=== PATIENT | male | born 1965 | race Caucasian/White ===

== ENCOUNTER 2017-03-24 16:52 | Emergency (ER) | payer BC ==
[~2017-03-24] VITALS: Wt 100.5 kg
[~2017-03-24 16:52] MED LIST: ASPI-664 PO; ATOR40TA68 PO; BENA10TA48 PO; DOCU100C26 PO; HYDR25TA6 PO; LANT3I SC; NATE60TA PO; SITA1TAB7 PO
--- NOTE | 2017-03-24 22:26 | ERA ---
ER Documentation Chief Complaint Date/Time DATE: 03/24/17 TIME: 22:26 Chief Complaint ELEVATED K+SENT FOR REPEAT BLOOD HPI The patient is a 52-year-old male, presenting to the ER because of abnormal lab , high potassium. He had the blood test a week ago in preparation for back surgery. His doctor called him today and asked him to go to the ER because of abnormal potassium. He denies headache, neck pain, chest pain, abdominal pain, vomiting, dysuria, diarrhea. He complains of dyspnea on exertion for the last 2 weeks with bilateral leg edema for more than 4 weeks, denies orthopnea, denies paroxysmal nocturnal dyspnea. He does not smoke nor drink. He complained of right plantar wounds for the last 4 days Past medical history: Hypertension, diabetes mellitus, dyslipidemia, CAD, right Charcot foot, Chronic kidney disease Past surgical history: He had cardiac angiogram on February 20, 2016 which was unremarkable ROS All systems reviewed and are negative except as per history of present illness. Medications Home Meds Active Scripts Insulin Glargine* (Lantus*) 100 Unit/Ml Soln, 28 UNIT SC DAILY for 30 Days, #1 VIAL Prov:JESSE CALVIN MD 03/11/16 Nateglinide* (Nateglinide*) 60 Mg Tablet, 60 MG PO AC MEALS for 30 Days, #180 TAB with carbohydrate meals Prov:JESSE CALVIN MD 03/11/16 Reported Medications Insulin Glargine* (Lantus*) 100 Unit/Ml Soln, 36 UNIT SC QHS, #1 VIAL 03/24/17 Docusate Sodium* (Doc-Q-Lace*) 100 Mg Capsule, 100 MG PO DAILY, CAP 03/24/17 Ciprofloxacin Opht* (Ciloxan*) 0.3%-3.5 Opht Oint, 1 APPLIC LEFT EYE TID, EA 03/24/17 Prednisolone Acetate* (Pred Forte*) 5 Ml Susp, 1 DROP LEFT EYE QID, EA 03/24/17 Repaglinide* (Repaglinide*) 2 Mg Tablet, 2 MG PO AC MEALS, TAB 03/24/17 Carvedilol* (Carvedilol*) 25 Mg Tablet, 25 MG PO BID, #60 TAB 03/24/17 Furosemide* (Furosemide*) 20 Mg Tablet, 20 MG PO DAILY, #60 TAB 03/24/17 Labetalol Hcl* (Labetalol Hcl*) 100 Mg Tablet, 100 MG PO BID, TAB 03/24/17 Sitagliptin Phos/Metformin HCl (Janumet 50-1,000 mg Tablet) 1 Each Tablet, 1 EACH PO BID WITH MEALS, TAB 03/24/17 Docusate Sodium* (Doc-Q-Lace*) 100 Mg Capsule, 100 MG PO DAILY, CAP 02/10/16 Atorvastatin* (Atorvastatin*) 40 Mg Tablet, 40 MG PO QHS, #30 TAB 07/21/15 Aspirin (Low Dose Aspirin) 81 Mg Tablet.dr, 81 MG PO DAILY 07/21/15 Benazepril Hcl* (Benazepril Hcl*) 10 Mg Tablet, 20 MG PO DAILY, #30 TAB 07/21/15 Hydrochlorothiazide* (Hydrochlorothiazide*) 25 Mg Tab, 25 MG PO DAILY, #30 TAB 07/21/15 Discontinued Reported Medications Repaglinide* (Prandin*) 2 Mg Tablet, 2 MG PO AC MEALS, TAB 03/24/17 Sitagliptin Phos-Metformin Hcl (Janumet) 50-1,000 Mg Tablet, 1 TAB PO WITH BREAKFAST DINNE, #60 TAB 02/10/16 Allergies Allergies: Coded Allergies: No Known Allergy (Unverified , 03/24/17) PMhx/Soc History of Surgery: Yes (RT LEG SX,MOUTH SX, ) Anesthesia Reaction: No Hx Neurological Disorder: No Hx Respiratory Disorders: No Hx Cardiac Disorders: No Hx Psychiatric Problems: No Hx Miscellaneous Medical Probl: No Hx Alcohol Use: No Hx Substance Use: No Hx Tobacco Use: Yes (QUIT 3 YRS AGO) Physical Exam Vitals Vital Signs Date Time Temp Pulse Resp B/P Pulse Ox O2 Delivery O2 Flow Rate FiO2 03/24/17 23:47 61 18 170/69 99 Room Air 03/24/17 16:58 98.0 98 18 168/74 99 Physical Exam Const: No acute distress. Head: Atraumatic. Eyes: Normal Conjunctiva. ENT: Normal External Ears, Nose and Mouth. Neck: Full range of motion. No meningismus. Resp: Clear to auscultation bilaterally. Cardio: Regular rate and rhythm. Abd: Soft, non distended, normal bowel sounds, non tender. Skin: No petechiae or rashes. Back: No midline or flank tenderness. Ext: No cyanosis, or edema. Neur: Awake and alert. No focal deficit Psych: Normal Mood and Affect. Result Diagram: 03/24/17229903/24/172299 Results 24 hrs Laboratory Tests Test 03/24/17 23:00 White Blood Count 5.310^3/ul Red Blood Count 3.3010^6/ul Hemoglobin 9.5g/dl Hematocrit 28.1% Mean Corpuscular Volume 85.2fl Mean Corpuscular Hemoglobin 28.8pg Mean Corpuscular Hemoglobin Concent 33.8g/dl Red Cell Distribution Width 13.3% Platelet Count 38171^3/UL Mean Platelet Volume 10.0fl Neutrophils % 56.7% Lymphocytes % 33.9% Monocytes % 6.3% Eosinophils % 2.1% Basophils % 0.8% Nucleated Red Blood Cells % 0.0/100WBC Neutrophils # 3.010^3/ul Lymphocytes # 1.810^3/ul Monocytes # 0.310^3/ul Eosinophils # 0.110^3/ul Basophils # 0.010^3/ul Nucleated Red Blood Cells # 0.010^3/ul Prothrombin Time 13.0Sec Prothrombin Time Ratio 1.0 INR International Normalized Ratio 0.98 Activated Partial Thromboplast Time 28.0Sec Sodium Level 137mmol/L Potassium Level 4.7mmol/L Chloride Level 110mmol/L Carbon Dioxide Level 21mmol/L Anion Gap 11 Blood Urea Nitrogen 37mg/dl Creatinine 1.90mg/dl Glucose Level 137mg/dl Calcium Level 8.8mg/dl Total Bilirubin 0.0mg/dl Direct Bilirubin 0.00mg/dl Indirect Bilirubin 0.0mg/dl Aspartate Amino Transf (AST/SGOT) 21IU/L Alanine Aminotransferase (ALT/SGPT) 33IU/L Alkaline Phosphatase 69IU/L Troponin I < 0.012ng/ml B-Type Natriuretic Peptide 334PG/ML Total Protein 6.1g/dl Albumin 3.3g/dl Globulin 2.80g/dl Albumin/Globulin Ratio 1.17 Current Medications Medications (Trade) Dose Ordered Sig/Carisa Route PRN Reason Start Time Stop Time Status Last Admin Dose Admin Sodium Chloride (NS) 500 ml @ 500 mls/hr Q1H ONCE IV 03/25/17 01:30 03/25/17 02:29 UNV Procedures/MDM [address] [address] Radiology Main Line: [phone] DIAGNOSTIC IMAGING REPORT Patient: KAMRON HENRIQUEZ : 1965 Age: 52 Sex: M MR #: [id number] DOS: 03/24/17 2250 Ordering MD: MALA CHACON MD Location: E/R Room/Bed: AMENDMENT: 03/25/2017 12:41:46 AM Roberto Carlos Santiago Please refer to the corrected report below: PROCEDURE: US bilateral lower extremity venous Doppler CLINICAL INDICATION: SOB TECHNIQUE: Multiple sonographic images of the bilateral lower extremity deep venous system was obtained utilizing grayscale, color-flow, compressive sonography and Doppler imaging with augmentation. COMPARISON: No pertinent prior examinations were submitted for comparison. FINDINGS: There is normal compressibility and flow within the right common femoral, superficial femoral, and popliteal veins. The peroneal vein is not visualized. There is normal compressibility and flow within the left common femoral, superficial femoral, and popliteal veins. The peroneal vein is not visualized. IMPRESSION: No sonographic evidence for deep venous thrombosis. RPTAT: HIKT PROCEDURE: US right lower extremity venous Doppler CLINICAL INDICATION: Right leg swelling TECHNIQUE: Multiple sonographic images of the right lower extremity deep venous system was obtained utilizing grayscale, color-flow, compressive sonography and Doppler imaging with augmentation. COMPARISON: No pertinent prior examinations were submitted for comparison. FINDINGS: There is normal compressibility and flow within the right common femoral, superficial femoral, and popliteal veins. The peroneal vein is not visualized. IMPRESSION: No sonographic evidence for deep venous thrombosis. RPTAT: HIKT .Roberto Carlos Santiago MD, MD Date Time Electronically viewed and signed by .Roberto Carlos Santiago MD, MD on 03/25/2017 00:43 .T/ CC: MALA CHACON MD [address] [address] Radiology Main Line: [phone] DIAGNOSTIC IMAGING REPORT Patient: KAMRON HENRIQUEZ : 1965 Age: 52 Sex: M MR #: [id number] DOS: 03/24/17 2250 Ordering MD: MALA CHACON MD Location: E/R Room/Bed: PROCEDURE: Chest. CLINICAL INDICATION: Shortness of breath. TECHNIQUE: Single frontal view of the chest was obtained. COMPARISON: 02/11/2016. FINDINGS: The cardiac silhouette is within normal limits. The aortic arch is unremarkable. There is no focal consolidation, vascular congestion or pleural effusion. There is no pneumothorax. IMPRESSION: No evidence for active cardiopulmonary disease. .Richie Poole MD, Date Time Electronically viewed and signed by .Richie Poole MD, MD on 03/25/2017 00:17 .T/ CC: MALA CHACON MD EKG: Read by emergency physician Rate/Rhythm: Normal Sinus Rhythm 68 beats/min QRS, ST, T-waves: No ST elevation, no T inversion, Nonspecific T abnormality Impression: Abnormal EKG MEDICAL MAKING DECISION: The patient is a 52-year-old male, presenting because of possible hyperkalemia, however her potassium level is normal. He does not have any evidence of CHF or DVT. Peripheral edema is most likely due to chronic kidney disease. The differential diagnoses considered include but are not limited to DVT, lymphedema, cellulitis, hepatic insufficiency Departure Diagnosis: Primary Impression: Chronic kidney disease Additional Impressions: Peripheral edema Anemia Condition: Good Comments I discussed the findings with the patient. I advised the patient to follow-up with the primary physician in about 1-2 days, sooner if needed and return if any concern. MALA CHACON MD Mar 24, 2017 22:26
[2017-03-24] MEDS ORDERED: SITA1TAB5 PO (23:30)
[2017-03-24] MEDS ORDERED: FURO20TA3 PO (23:30)
[2017-03-24] MEDS ORDERED: CARV25TA79 PO (23:30)
[2017-03-24] MEDS ORDERED: LABE100T3 PO (23:30)
[2017-03-24] MEDS ORDERED: CPR3OO3.5 LEFT EYE (23:30)
[2017-03-24] MEDS ORDERED: PRD1OP5 LEFT EYE (23:30)
[2017-03-24] MEDS ORDERED: REPA2TAB6 PO (23:30)
[2017-03-24] MEDS ORDERED: REPA2TAB8 PO (23:30)
[2017-03-24] MEDS ORDERED: DOCU100C26 PO (23:46)
[2017-03-24] MEDS ORDERED: LANT3I SC (23:49)
--- NOTE | 2017-03-24 23:58 | RADRPT ---
AMENDMENT: 03/25/2017 12:41:46 AM Roberto Carlos Santiago Please refer to the corrected report below: PROCEDURE: US bilateral lower extremity venous Doppler CLINICAL INDICATION: SOB TECHNIQUE: Multiple sonographic images of the bilateral lower extremity deep venous system was obt ained utilizing grayscale, color-flow, compressive sonography and Doppler imaging with augmentation. COMPARISON: No pertinent prior examinations were submitted for comparison. FINDINGS: There is normal compressibility and flow within the right common femoral, superficial femoral, and p opliteal veins. The peroneal vein is not visualized. There is normal compressibility and flow within the left common femoral, superficial femoral, and po pliteal veins. The peroneal vein is not visualized. IMPRESSION: No sonographic evidence for deep venous thrombosis. RPTAT: HIKT PROCEDURE: US right lower extremity venous Doppler CLINICAL INDICATION: Right leg swelling TECHNIQUE: Multiple sonographic images of the right lower extremity deep venous system was obtaine d utilizing grayscale, color-flow, compressive sonography and Doppler imaging with augmentation. COMPARISON: No pertinent prior examinations were submitted for comparison. FINDINGS: There is normal compressibility and flow within the right common femoral, superficial femoral, and p opliteal veins. The peroneal vein is not visualized. IMPRESSION: No sonographic evidence for deep venous thrombosis. RPTAT: HIKT .Roberto Carols Santiago MD, Date Time Electronically viewed and signed by .Roberto Carlos Santiago MD, on 03/25/2017 00:43 .T/
[2017-03-25 00:01] LABS: BASOPHILS % 0.8 % (0.0-2.0); EOSINOPHILS # 0.1 10^3/ul (0.0-0.5); EOSINOPHILS % 2.1 % (0.0-7.0); HEMATOCRIT 28.1 % (42.0-52.0); HEMOGLOBIN 9.5 g/dl (14.0-18.0); LYMPHOCYTES # 1.8 10^3/ul (0.8-2.9); LYMPHOCYTES % 33.9 % (15.0-51.0); MEAN CORPUSCULAR HEMOGLOBIN 28.8 pg (29.0-33.0); MEAN CORPUSCULAR HGB CONC 33.8 g/dl (32.0-37.0); MEAN CORPUSCULAR VOLUME 85.2 fl (82.0-101.0); MONOCYTE # 0.3 10^3/ul (0.3-0.9); MONOCYTES % 6.3 % (0.0-11.0); NEUTROPHILS % 56.7 % (39.0-77.0); PLATELET COUNT 231 10^3/UL (140-415); RED CELL DISTRIBUTION WIDTH 13.3 % (11.5-14.5); WHITE BLOOD COUNT 5.3 10^3/ul (4.8-10.8)
[2017-03-25 00:16] LABS: INR 0.98
--- NOTE | 2017-03-25 00:17 | RADRPT ---
PROCEDURE: Chest. CLINICAL INDICATION: Shortness of breath. TECHNIQUE: Single frontal view of the chest was obtained. COMPARISON: 02/11/2016. FINDINGS: The cardiac silhouette is within normal limits. The aortic arch is unremarkable. There is no focal consolidation, vascular congestion or pleural effusion. There is no pneumothorax. IMPRESSION: No evidence for active cardiopulmonary disease. .Richie Poole MD, Date Time Electronically viewed and signed by .Richie Poole MD, on 03/25/2017 00:17 .T/
[2017-03-25 00:29] LABS: ALANINE AMINOTRANSFERASE 33 IU/L (13-69); ALBUMIN 3.3 g/dl (3.3-4.9); ALBUMIN/GLOBULIN RATIO 1.17; ALKALINE PHOSPHATASE 69 IU/L (42-121); ANION GAP 11 (8-16); ASPARTATE AMINO TRANSFERASE 21 IU/L (15-46); BLOOD UREA NITROGEN 37 mg/dl (7-20); CALCIUM 8.8 mg/dl (8.4-10.2); CARBON DIOXIDE 21 mmol/L (21-31); CHLORIDE 110 mmol/L (97-110); GLUCOSE 137 mg/dl (70-220); POTASSIUM 4.7 mmol/L (3.5-5.1); SODIUM 137 mmol/L (135-144); TOTAL PROTEIN 6.1 g/dl (6.1-8.1)
[2017-03-25 00:37] LABS: B-TYPE NATRIURETIC PEPTIDE 334 PG/ML (0-125)
[2017-03-25 01:02] LABS: TROPONIN-I < 0.012 ng/ml (0.00-0.12)
[2017-03-25] MEDS ORDERED: SOD CHLORIDE 0.9% 500 ML IV ONE (01:30)
[2017-03-25 02:00] VITALS: BP 160/77; PULSE 64; RESP 17
== END 2017-03-25 02:31 | disposition home or self-care (01) ==
LOC: E/R 16:52
DX: N18.9 Chronic kidney disease, unspecified (principal); R60.0 Localized edema; D64.9 Anemia, unspecified; E11.9 Type 2 diabetes mellitus without complications; I25.10 Atherosclerotic heart disease of native coronary artery without angina pectoris; I12.9 Hypertensive chronic kidney disease with stage 1 through stage 4 chronic kidney disease, or unspecified chronic kidney disease; Z79.4 Long term (current) use of insulin; Z79.84 Long term (current) use of oral hypoglycemic drugs; Z79.82 Long term (current) use of aspirin; Z87.891 Personal history of nicotine dependence
CPT/HCPCS: 36415; 71010; 80053; 83880; 84484; 85025; 85610; 85730; 93970; J7040

== ENCOUNTER 2017-04-26 12:43 | Day surgery (SDC) | payer BC ==
[~2017-04-26] VITALS: Ht 170.2 cm; Wt 97.4 kg
[~2017-04-26 12:43] MED LIST changes: +CARV25TA79 PO; +CPR3OO3.5 LEFT EYE; +FURO20TA3 PO; +LABE100T3 PO; +PRD1OP5 LEFT EYE; +REPA2TAB8 PO; +SITA1TAB5 PO; -SITA1TAB7 PO
[2017-04-26 13:42] VITALS: Ht 170.2 cm; Wt 97.4 kg
[2017-04-26 14:06] VITALS: BP 197/96; PULSE 65
--- NOTE | 2017-04-26 14:47 | OPPN ---
Date/Time of Note Date/Time of Note DATE: 04/26/17 TIME: 14:46 Operative Report Preoperative Diagnosis Positive occult blood in stool Postoperative Diagnosis 3 colon polyps removed using biopsy forceps as well as snare and electrocautery Poor prep making the exam suboptimal Internal hemorrhoids Operation/Procedure Performed Colonoscopy biopsy and polypectomy Surgeon see signature line magistrate assistant None Anesthesia: moderate sedation Estimated blood loss: none Transfusion Required none Specimen Colon polyps Grafts/Implants none Complications none RADHA BOTELLO MD Apr 26, 2017 14:47
--- NOTE | 2017-04-26 14:47 | OPPN ---
Date/Time of Note Date/Time of Note DATE: 04/26/17 TIME: 14:46 Operative Report Preoperative Diagnosis Positive occult blood in stool Postoperative Diagnosis 3 colon polyps removed using biopsy forceps as well as snare and electrocautery Poor prep making the exam suboptimal Internal hemorrhoids Operation/Procedure Performed Colonoscopy biopsy and polypectomy Surgeon see signature line cafeteria assistant None Anesthesia: moderate sedation Estimated blood loss: none Transfusion Required none Specimen Colon polyps Grafts/Implants none Complications none RADHA BOTELLO MD Apr 26, 2017 14:47
--- NOTE | 2017-04-26 14:47 | OPPN ---
Date/Time of Note Date/Time of Note DATE: 04/26/17 TIME: 14:46 Operative Report Preoperative Diagnosis Positive occult blood in stool Postoperative Diagnosis 3 colon polyps removed using biopsy forceps as well as snare and electrocautery Poor prep making the exam suboptimal Internal hemorrhoids Operation/Procedure Performed Colonoscopy biopsy and polypectomy Surgeon see signature line assistant project manager None Anesthesia: moderate sedation Estimated blood loss: none Transfusion Required none Specimen Colon polyps Grafts/Implants none Complications none RADHA BOTELLO MD Apr 26, 2017 14:47
[2017-04-26] MEDS ORDERED: MIDAZOLAM 1 MG/ML 2 ML INJ ONE (14:58)
[2017-04-26] MEDS ORDERED: FENTAnyl 50 MCG/ML VIAL ONE (14:58)
[2017-04-26 15:10] VITALS: BP 163/84; RESP 14
--- NOTE | 2017-04-27 08:40 | GILP ---
DATE OF PROCEDURE: NAME OF PROCEDURES: Colonoscopy, biopsy and polypectomy. SURGEON: Radha Deleon MD PREOPERATIVE DIAGNOSIS: Positive occult blood in stool. POSTOPERATIVE DIAGNOSES 1. Colonoscopy all the way to the cecum. 2. Poor prep making the exam very suboptimal. 3. Three colon polyps were removed using the biopsy forceps as well as snare and electrocautery. 4. Internal hemorrhoids. INDICATION FOR THE PROCEDURE: Mr. Elmer Wall is a 52-year-old male patient who was noted to h ave positive occult blood in stool. The patient was scheduled for colonoscopic examination. The pr ocedure and possible complications were well explained to the patient, he understood and consented t o the procedure. DESCRIPTION OF PROCEDURE: Under the influence of fentanyl and Versed, the colonoscope was carefully introduced in the rectum and under direct vision, it was advanced all the way to the cecum. FINDINGS: The patient had poor prep making the exam very suboptimal. The patient was noted to have 3 polyps and 2 of them were removed using biopsy forceps and one with the snare and electrocautery. The patient was noted to have internal hemorrhoids. He tolerated the procedure very well and there was no complication from the procedure. At the end o f the procedure, he was awake with stable vital signs and he was discharged home to the care of his family. IMPRESSION: 1. Colonoscopy all the way to the cecum. 2. Poor prep making the exam very suboptimal. 3. Three colon polyps were removed using the biopsy forceps as well as snare and electrocautery. 4. Internal hemorrhoids. PLAN: Await histopathology report. Because of the poor prep and suboptimal nature of the examinati on, would recommend repeat colonoscopy with a better preparation in 1 year. Dictated By: RADHA BARBER/JAYRO Conf#: [id number] DID#: [id number]
== END 2017-04-26 15:51 | disposition home or self-care (01) ==
LOC: GIL 12:43
PROVIDERS: ATTEND Internal Medicine Gastroenterology
DX: K92.1 Melena (principal); D12.6 Benign neoplasm of colon, unspecified; K64.8 Other hemorrhoids; I12.9 Hypertensive chronic kidney disease with stage 1 through stage 4 chronic kidney disease, or unspecified chronic kidney disease; N18.9 Chronic kidney disease, unspecified; E11.9 Type 2 diabetes mellitus without complications
CPT/HCPCS: 45385; 82962; 88305; J2250; J3010; Z7610

== ENCOUNTER 2017-09-11 05:46 | Day surgery (SDC) | END 2017-09-11 11:05 | disposition home or self-care (01) ==

== ENCOUNTER 2018-01-15 12:14 | Emergency (ER) | END 2018-01-15 16:56 | disposition home or self-care (01) ==

== ENCOUNTER 2018-01-17 10:19 | Emergency (ER) | END 2018-01-17 11:32 | disposition home or self-care (01) ==

== ENCOUNTER 2018-01-19 10:47 | Emergency (ER) | END 2018-01-19 13:04 | disposition home or self-care (01) ==

== ENCOUNTER 2018-02-08 14:19 | Emergency (ER) | END 2018-02-08 19:15 | disposition home or self-care (01) ==